=== PATIENT | male | born 1990 ===

== ENCOUNTER 2018-12-27 14:32 | Emergency (ER) | payer BC ==
[2018-12-27 14:40] VITALS: BP 131/86
[2018-12-27] MEDS ORDERED: Tetan/Diph/Pertus SYR(Tdap)* 0.5 ML SYR(BOOSTRIX) use SYR IM ONE (14:52)
--- NOTE | 2018-12-27 15:17 | UC ---
Skin Complaint HPI - HPI Summary HPI Summary: PT WAS WALKING BAREFOOT IN A [place] YESTERDAY WHEN HE STEPPED ON NAIL. NOT UP TO DATE TETANUS. - History of Current Complaint Chief Complaint: UCWounds Time Seen by Provider: 12/27/18 14:52 Stated Complaint: PUNCTURE WOUND Hx Obtained From: Patient Onset/Duration: Sudden Onset, Lasting Hours, Still Present Timing: Constant Onset Severity: Moderate Current Severity: Moderate Pain Intensity: 0 Pain Scale Used: 0-10 Numeric Location: Foot (Right) Character: Redness Aggravating Factor(s): Touch Associated Signs & Symptoms: Positive: Negative - Allergy/Home Medications Allergies/Adverse Reactions: Allergies Allergy/AdvReac Type Severity Reaction Status Date / Time No Known Allergies Allergy Verified 12/27/18 14:40 PMH/Surg Hx/FS Hx/Imm Hx Previously Healthy: Yes - Surgical History Surgical History: None - Family History Known Family History: Positive: Non-Contributory - Social History Alcohol Use: Occasionally Substance Use Type: Marijuana Substance Use Comment - Amount & Last Used: weekly Smoking Status (MU): Never Smoked Tobacco Review of Systems All Other Systems Reviewed And Are Negative: Yes Constitutional: Positive: Negative Skin: Positive: Other - PW RIGHT FOOT Respiratory: Positive: Negative Cardiovascular: Positive: Negative Gastrointestinal: Positive: Negative Musculoskeletal: Positive: Negative Physical Exam Triage Information Reviewed: Yes Appearance: Well-Appearing, No Pain Distress, Well-Nourished Vital Signs: Initial Vital Signs Temp 99.4 F 12/27/18 14:37 Pulse 98 12/27/18 14:37 Resp 18 12/27/18 14:37 BP 131/86 12/27/18 14:37 Pulse Ox 100 12/27/18 14:37 Vital Signs Reviewed: Yes Eyes: Positive: Conjunctiva Clear ENT: Positive: Hearing grossly normal Neck: Positive: Supple Respiratory: Positive: No respiratory distress, No accessory muscle use Cardiovascular: Positive: Pulses Normal Abdomen Description: Positive: Soft Musculoskeletal: Positive: ROM Intact, No Edema, Other: - NOT TENDER OVER PW ADJACENT MTP JOINT Neurological: Positive: Alert Psychological: Positive: Age Appropriate Behavior Skin: Positive: Other - <1CM ERYTHEMA SURROUNDING PW PLANTAR SURFACE RIGHT FOOT AT 2ND MTP JOINT Diagnostics - Radiology RIGHT FOOT XRAYS Radiology Interpretation Completed By: Radiologist Summary of Radiographic Findings: Normal radiograph of the right foot. Course/Dx - Course Course Of Treatment: X-RAYS TODAY UNREMARKABLE. TDAP BOOSTED. NO EVIDENCE OF INFECTION PRESENTLY SO WILL PROVIDE PROPHYLAXIS WITH LEVOFLOXACIN. FOLLOW-UP IF NEEDED. - Diagnoses Provider Diagnosis: Puncture wound of right foot Discharge - Sign-Out/Discharge Documenting (check all that apply): Patient Departure All imaging exams completed and their final reports reviewed: Yes - Discharge Plan Condition: Stable Disposition: HOME Prescriptions: levoFLOXacin [Levofloxacin] 750 mg PO DAILY #5 tablet Patient Education Materials: Puncture Wound (ED) Referrals: [facility] [Outside] - If Needed Additional Instructions: X-RAY TODAY NEGATIVE FOR BONY INJURY OR RETAINED FOREIGN BODY. WE'LL COVER FOR INFECTION WITH LEVOFLOXACIN ONCE DAILY FOR 5 DAYS. TDAP BOOSTED TODAY. SEEK FOLLOW-UP IF YOU DEVELOP SPREADING REDNESS OF THE SKIN, PURULENT DRAINAGE, FEVER, INCREASED PAIN OR ANY OTHER CONCERNING SYMPTOMS. CALL THE NUMBER BELOW FOR ASSISTANCE IN ESTABLISHING WITH A PCP An additional resource available to assist in finding the appropriate physician for your health care needs is [facility] ([facility]). You may contact them by calling [phone]. - Billing Disposition and Condition Condition: STABLE Disposition: Home
== END 2018-12-27 15:58 | disposition home or self-care (01) ==
LOC: UCEAST 14:32
DX: S91.331A Puncture wound without foreign body, right foot, initial encounter (principal); W22.8XXA Striking against or struck by other objects, initial encounter; Y93.01 Activity, walking, marching and hiking; Y92.828 Other wilderness area as the place of occurrence of the external cause; Z23 Encounter for immunization
CPT/HCPCS: 90471; 90715; 96372; 99202; G0463